=== PATIENT | male | born 1995 | race Two or more races ===

== ENCOUNTER 2016-12-30 15:34 | Emergency (ER) | payer OTHER ==
[~2016-12-30] VITALS: Ht 172.7 cm; Wt 83.0 kg
[2016-12-30 23:32] VITALS: BP 118/76
== END 2016-12-31 00:30 | disposition home or self-care (01) ==
LOC: ER 15:43
DX: T54.91XA Toxic effect of unspecified corrosive substance, accidental (unintentional), initial encounter (principal); R51 Headache; R11.2 Nausea with vomiting, unspecified; Y92.69 Other specified industrial and construction area as the place of occurrence of the external cause